=== PATIENT | female | born 1975 | race Caucasian/White ===

== ENCOUNTER 2017-11-14 04:23 | Inpatient (IN) | payer SELFPAY ==
[2017-11-14] VITALS (137 sets, daily range): BP systolic 110–162; BP diastolic 59–97; PULSE 63–109; RESP 16–18; TEMP 97.8–99.1; O2SAT 95–99
[~2017-11-14] VITALS: Ht 162.6 cm; Wt 95.0 kg
[2017-11-14] MEDS ORDERED: LACTATED RINGER'S 1000 ML INJ 1,000 ML IV PRN (05:06)
[2017-11-14] MEDS ORDERED: LACTATED RINGER'S 1000 ML INJ 1,000 ML IV SCH ×3 (05:06→22:39)
[2017-11-14] MEDS ORDERED: PREN29TA PO (05:12)
[2017-11-14] MEDS ORDERED: OXYTOCIN 30 UNITS-500ML PREMIX 500 ML IV ONE ×2 (05:15→17:45)
[2017-11-14] MEDS ORDERED: LIDOCAINE HCL 1% 50 ML VIAL I-DERMAL PRN (05:15)
[2017-11-14] MEDS ORDERED: SODIUM CHLORID 0.9% 500 ML INJ 500 ML IV PRN (05:15)
[2017-11-14] MEDS ORDERED: MINERAL OIL 10 ML VIAL TOPICAL PRN (05:15)
[2017-11-14] MEDS ORDERED: ONDANSETRON HCL 4 MG/2 ML VIAL IV PUSH PRN ×2 (05:15→17:45)
[2017-11-14] MEDS ORDERED: LIDOCAINE HCL 1% 50 ML VIAL INFIL PRN (05:15)
--- NOTE | 2017-11-14 05:22 | HHI.PR ---
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 She has PNC with [facility]. She presents with c/o ctx since 1am. ?LOF. +Bloody show. +FM. is c/b AMA and "HTN" earlier in (not tx). GBS unknown. Weeks Gestation: 38 Para: 0 : 1 History (Limited) History Past Medical History Medical History: Denies Significant Hx Obstetric History Obstetric History 1. current Past Surgical History Narrative Surgical wisdom teeth extraction Family History Family History: Negative Social History Alcohol Use: No Tobacco Use: No Substance Abuse: No Allergies-Medications Allergies-Medications (Allergen,Severity, Reaction): Coded Allergies: No Known Allergies (Verified Allergy, Unknown, 11/14/17) Home Meds Reported Medications Vit-Iron Carbonyl ( Plus Iron 29-1 mg) 29 Mg Iron-1 Mg Tab, 1 TAB PO DAILY for Nutritional Supplement, #30 TAB 0 Refills 11/14/17 ROS Review of Systems Except as stated in HPI: all other systems reviewed are Neg Physical Exam Physical Exam Narrative General: well developed, well nourished, uncomfortable with ctx, obese HEENT: normocephalic atraumatic, extraocular movements intact, neck supple Abdomen: soft, gravid, nontender, nondistended Uterus: fundus term Extremities: full range of motion Skin: normal coloration, no rashes, no suspicious skin lesions noted Neurologic: cranial nerves 2-12 grossly intact, normal muscle tone, normal gait Psychiatric: normal mood and affect, appropriate FHTs: 150s, +accels, occasional early decels, moderate variability, reactive [place]: irregular ctx Cvx: /-1 Data Data Data Vital Signs Reviewed: Yes Orders Orders Vital Signs (Adult) .ON ADMISSION (11/14/17 05:06) ^ Labor Status (11/14/17 05:06) ^ Non Stress Test (11/14/17 05:06) Admit To Inpatient (11/14/17 ) Vital Signs (Adult) .Per protocol (11/14/17 05:06) Heart (11/14/17 05:06) Amnioinfusion (11/14/17 05:06) Urinary Catheter Management .ONCE (11/14/17 05:06) Diet Liquid (11/14/17 Breakfast) Lactated Ringer's 1000 Ml Inj (Lr 1000 M (11/14/17 05:06) Lactated Ringer's 1000 Ml Inj (Lr 1000 M (11/14/17 05:06) Sodium Chlorid 0.9% 500 Ml Inj (Ns 500 M (11/14/17 05:15) Sodium Chlor 0.9% 1000 Ml Inj (Ns 1000 M (11/14/17 05:26) Lidocaine 1% Inj (50 Ml) (Xylocaine 1% I (11/14/17 05:15) Ondansetron Inj (Zofran Inj) (11/14/17 05:15) Fentanyl Inj (Fentanyl Inj) (11/14/17 05:15) Fentanyl Inj (Fentanyl Inj) (11/14/17 05:15) Complete Blood Count With Diff (11/14/17 05:06) Hold Clot (11/14/17 05:06) Abo/Rh Blood Type (11/14/17 05:06) Urinalysis - C+S If Indicated (11/14/17 05:06) Drug Screen, Random Urine (11/14/17 05:06) No Care Spec Serology (11/14/17 05:06) Resp Oxygen Non Rebreathe Mask (11/14/17 ) ^ Epidural / Intrathecal Infus (11/14/17 05:06) Oxytocin 30 Units-500ml Premix (Pitocin (11/14/17 05:15) Lidocaine 1% Inj (50 Ml) (Xylocaine 1% I (11/14/17 05:15) Light Mineral Oil (Muri-Lube Oil) (11/14/17 05:15) Inpatient Certification (11/14/17 ) Ob (2e) Additional Admit Info (11/14/17 05:12) MDM MDM Plan 42y/o G1 @ 38.5wks with labor and elevated BP. -- admit to L&D -- clears, epidural/juarez PRN -- GBS unknown, no risk factors to necessitate tx -- BPs likely 2' to pain; monitor closely -- cat 2 tracing Diagnosis Diagnosis: Primary Impression: 38 weeks gestation of Additional Impressions: Uterine contractions during AMA (advanced maternal age) primigravida 35+ Obesity affecting in third trimester Elevated blood pressure reading Alejo Garber MD Nov 14, 2017 05:22 Alejo Garber MD Nov 14, 2017 05:22
[2017-11-14] MEDS ORDERED: SODIUM CHLOR 0.9% 1000 ML INJ 1,000 ML IV PRN (05:26)
[2017-11-14 05:42] LABS: AUTOMATED NEUTROPHIL # 16.7 TH/MM3 (1.8-7.7); BASOPHIL # 0.1 TH/MM3 (0-0.2); BASOPHIL % 0.4 % (0.0-2.0); EOSINOPHIL % 0.1 % (0.0-4.0); HEMATOCRIT 39.4 % (35.0-46.0); HEMO FLAGS DIFF FINAL; LYMPHOCYTE # 0.9 TH/MM3 (1.0-4.8); MEAN CELL VOLUME 91.2 FL (80.0-100.0); MEAN CORPUSCULAR HEMOGLOBIN 30.4 PG (27.0-34.0); MEAN CORPUSCULAR HGB CONC 33.3 % (32.0-36.0); MONO % 3.3 % (0.0-8.0); NEUT % 91.2 % (16.0-70.0); PLATELET COUNT 284 TH/MM3 (150-450); RED BLOOD COUNT 4.31 MIL/MM3 (4.00-5.30); RED CELL DISTRIBUTION WIDTH 14.3 % (11.6-17.2); WHITE BLOOD COUNT 18.3 TH/MM3 (4.0-11.0)
[2017-11-14] MEDS ORDERED: fentaNYL 2MCG-BUPIV 0.125% INJ 100 ML ONE ×2 (06:02→12:03)
--- NOTE | 2017-11-14 11:19 | HHI.PR ---
Subjective Remarks Upon assuming care for the patient I spoke with her through the cooperage shop supervisor. We discussed the risks of labor and vaginal delivery including but not limited to shoulder dystocia with neurologic injury. We also discussed the risk of delivery and indications for such. Risks were discussed the cooperage shop supervisor including but not limited to pain, infection, bleeding, injury to other organs like the bladder, bowels, nerves, vessels or baby, repeat operation , need for hysterectomy, need for blood transfusion, wound infection or breakdown and other possible complications. The patient is in agreement with a delivery if indicated. Of note the patient was examined at 6:15 AM and was 6 cm dilated. She was reexamined approximately 10:15 AM and was still 6 cm dilated. I examined her and has been no cervical change so we will start oxytocin care the patient is in agreement. Objective Vital Signs Date Time Temp Pulse Resp B/P (MAP) Pulse Ox O2 Delivery O2 Flow Rate FiO2 11/14/17 10:50 99 11/14/17 10:45 90 11/14/17 10:45 88 123/63 (83) 11/14/17 10:40 80 11/14/17 10:35 77 11/14/17 10:30 81 11/14/17 10:30 99.1 16 11/14/17 10:30 100 125/71 (89) 11/14/17 10:25 89 11/14/17 10:20 82 11/14/17 10:15 82 11/14/17 10:15 80 122/66 (84) 11/14/17 10:10 87 11/14/17 10:05 63 117/67 (84) 11/14/17 10:05 76 11/14/17 10:00 87 11/14/17 10:00 84 132/74 (93) 11/14/17 10:00 16 11/14/17 09:55 87 11/14/17 09:50 97 11/14/17 09:45 87 11/14/17 09:45 80 126/66 (86) 11/14/17 09:40 85 11/14/17 09:35 96 11/14/17 09:30 86 11/14/17 09:30 87 125/69 (87) 11/14/17 09:30 98.9 16 11/14/17 09:25 91 11/14/17 09:20 84 11/14/17 09:15 85 128/81 (97) 11/14/17 09:15 88 11/14/17 09:10 85 11/14/17 09:05 92 11/14/17 09:00 16 11/14/17 09:00 90 126/71 (89) 11/14/17 09:00 92 11/14/17 08:55 92 11/14/17 08:50 95 11/14/17 08:45 85 11/14/17 08:45 83 128/75 (92) 11/14/17 08:40 90 11/14/17 08:35 96 11/14/17 08:30 86 11/14/17 08:30 16 11/14/17 08:30 86 124/68 (86) 11/14/17 08:25 95 11/14/17 08:23 97.8 11/14/17 08:20 87 11/14/17 08:15 90 11/14/17 08:15 83 133/73 (93) 11/14/17 08:10 90 11/14/17 08:05 88 11/14/17 08:00 93 11/14/17 08:00 93 137/85 (102) 11/14/17 08:00 16 11/14/17 07:55 86 11/14/17 07:50 91 11/14/17 07:45 87 135/66 (89) 11/14/17 07:45 87 11/14/17 07:45 16 11/14/17 07:40 87 11/14/17 07:30 95 129/70 (89) 11/14/17 07:15 98.5 11/14/17 07:15 83 126/69 (88) 11/14/17 07:15 16 11/14/17 07:00 18 11/14/17 07:00 86 112/92 (99) 11/14/17 06:57 91 129/72 (91) 11/14/17 06:54 104 130/81 (97) 11/14/17 06:52 82 136/59 (84) 11/14/17 06:48 106 131/83 (99) 11/14/17 06:46 97 128/81 (97) 11/14/17 06:42 88 142/73 (96) 11/14/17 06:40 101 11/14/17 06:39 105 150/78 (102) 11/14/17 06:36 109 139/86 (103) 11/14/17 06:33 100 134/71 (92) 11/14/17 06:31 93 119/78 (92) 11/14/17 06:30 18 11/14/17 06:27 95 143/76 (98) 11/14/17 06:24 97 138/80 (99) 11/14/17 06:21 98 151/87 (108) 11/14/17 06:20 96 11/14/17 06:18 90 152/80 (104) 11/14/17 06:15 97 159/97 (117) 11/14/17 06:12 89 162/97 (118) 11/14/17 06:10 100 11/14/17 06:09 100 159/83 (108) 11/14/17 06:07 98 149/81 (103) 11/14/17 06:05 85 11/14/17 06:04 84 138/78 (98) Result Diagram: 11/14/17 0525 Aditi Villalba MD Nov 14, 2017 11:19
[2017-11-14] MEDS ORDERED: OXYTOCIN 30 UNITS-500ML PREMIX 500 ML IV SCH ×2 (11:30→12:00)
[2017-11-14 11:31] LABS: ALKALINE PHOSPHATASE 157 U/L (45-117); TOTAL BILIRUBIN ADULT 0.7 MG/DL (0.2-1.0)
[2017-11-14 14:29] LABS: ALT (GPT) 11 U/L (10-53); ANION GAP 10 MEQ/L (5-15); AST (GOT) 10 U/L (15-37); BICARBONATE 22.2 MEQ/L (21.0-32.0); BLOOD UREA NITROGEN 6 MG/DL (7-18); CHLORIDE 106 MEQ/L (98-107); GLOMERULAR FILTRATION RATE 91 ML/MIN (>89); POTASSIUM 3.9 MEQ/L (3.5-5.1); SODIUM (NA) 138 MEQ/L (136-145)
--- NOTE | 2017-11-14 14:38 | PD.LABORPN ---
Subjective Subjective Patient on 10 units of Pitocin. States that she's feeling increased pain and pressure. Objective Vital Signs Vital Signs Date Time Temp Pulse Resp B/P (MAP) Pulse Ox O2 Delivery O2 Flow Rate FiO2 11/14/17 14:15 93 11/14/17 14:10 96 11/14/17 14:05 93 11/14/17 14:01 92 134/61 (85) 11/14/17 14:00 91 11/14/17 13:55 90 11/14/17 13:50 90 11/14/17 13:46 85 143/65 (91) 11/14/17 13:45 87 11/14/17 13:40 88 11/14/17 13:35 98 11/14/17 13:30 87 11/14/17 13:30 89 128/72 (90) 11/14/17 13:25 88 11/14/17 13:20 92 11/14/17 13:15 87 129/73 (91) 11/14/17 13:15 88 11/14/17 13:10 103 11/14/17 13:05 97 11/14/17 13:00 93 125/67 (86) 11/14/17 13:00 96 11/14/17 12:55 91 11/14/17 12:50 91 11/14/17 12:46 100 110/67 (81) 11/14/17 12:45 93 11/14/17 12:40 101 11/14/17 12:35 88 11/14/17 12:30 91 11/14/17 12:30 98.5 16 11/14/17 12:30 93 117/63 (81) 11/14/17 12:25 92 11/14/17 12:20 89 11/14/17 12:15 94 11/14/17 12:15 88 123/67 (85) 11/14/17 12:10 100 11/14/17 12:05 101 11/14/17 12:00 92 124/72 (89) 11/14/17 12:00 101 11/14/17 11:56 16 11/14/17 11:55 90 11/14/17 11:50 89 11/14/17 11:45 94 127/60 (82) 11/14/17 11:45 94 11/14/17 11:40 94 11/14/17 11:35 89 11/14/17 11:30 100 11/14/17 11:30 88 126/70 (88) 11/14/17 11:25 88 11/14/17 11:20 104 11/14/17 11:15 85 11/14/17 11:05 95 11/14/17 11:00 87 127/74 (91) 11/14/17 11:00 16 11/14/17 11:00 95 11/14/17 10:55 83 11/14/17 10:50 99 11/14/17 10:45 90 11/14/17 10:45 88 123/63 (83) 11/14/17 10:40 80 11/14/17 10:35 77 11/14/17 10:30 81 11/14/17 10:30 99.1 16 11/14/17 10:30 100 125/71 (89) 11/14/17 10:25 89 11/14/17 10:20 82 11/14/17 10:15 82 11/14/17 10:15 80 122/66 (84) 11/14/17 10:10 87 11/14/17 10:05 63 117/67 (84) 11/14/17 10:05 76 11/14/17 10:00 87 11/14/17 10:00 84 132/74 (93) 11/14/17 10:00 16 11/14/17 09:55 87 11/14/17 09:50 97 11/14/17 09:45 87 11/14/17 09:45 80 126/66 (86) 11/14/17 09:40 85 11/14/17 09:35 96 11/14/17 09:30 86 11/14/17 09:30 87 125/69 (87) 11/14/17 09:30 98.9 16 11/14/17 09:25 91 11/14/17 09:20 84 11/14/17 09:15 85 128/81 (97) 11/14/17 09:15 88 11/14/17 09:10 85 11/14/17 09:05 92 11/14/17 09:00 16 11/14/17 09:00 90 126/71 (89) 11/14/17 09:00 92 11/14/17 08:55 92 12/19/17 08:50 95 11/14/17 08:45 85 11/14/17 08:45 83 128/75 (92) 11/14/17 08:40 90 11/14/17 08:35 96 11/14/17 08:30 86 11/14/17 08:30 16 11/14/17 08:30 86 124/68 (86) 11/14/17 08:25 95 11/14/17 08:23 97.8 11/14/17 08:20 87 11/14/17 08:15 90 11/14/17 08:15 83 133/73 (93) 11/14/17 08:10 90 11/14/17 08:05 88 11/14/17 08:00 93 11/14/17 08:00 93 137/85 (102) 11/14/17 08:00 16 11/14/17 07:55 86 11/14/17 07:50 91 11/14/17 07:45 87 135/66 (89) 11/14/17 07:45 87 11/14/17 07:45 16 11/14/17 07:40 87 11/14/17 07:30 95 129/70 (89) 11/14/17 07:15 98.5 11/14/17 07:15 83 126/69 (88) 11/14/17 07:15 16 11/14/17 07:00 18 11/14/17 07:00 86 112/92 (99) 11/14/17 06:57 91 129/72 (91) 11/14/17 06:54 104 130/81 (97) 11/14/17 06:52 82 136/59 (84) 11/14/17 06:48 106 131/83 (99) 11/14/17 06:46 97 128/81 (97) 11/14/17 06:42 88 142/73 (96) 11/14/17 06:40 101 11/14/17 06:39 105 150/78 (102) 11/14/17 06:36 109 139/86 (103) 11/14/17 06:33 100 134/71 (92) Objective Pelvic Exam: Cervix: Midline Dilatation: 6 cm Effacement: 90% Station: -1 Presentation: Vertex Membranes: Ruptured Uterine Contractions: Every 3-4 minutes FHT's: Category: 1 Baseline: 150 Reactive: Yes Variability: Moderate Decels: Early Weeks Gestation: 38 Assessment/Plan Problem List: (1) 38 weeks gestation of ICD Codes: Z3A.38 - 38 weeks gestation of Status: Acute (2) Obesity affecting in third trimester ICD Codes: O99.213 - Obesity complicating , third trimester Status: Acute (3) AMA (advanced maternal age) primigravida 35+ ICD Codes: O09.519 - Supervision of elderly primigravida, unspecified trimester Status: Acute Assessment and Plan Patient is a 42-year-old female at 38 weeks. Category 1 FHT. Little change in cervical exam: /. Plan to increase Pitocin. Recheck in 2 hours or as indicated. Discuss with Annmarie Howell MD R1 Nov 14, 2017 14:38
[2017-11-14 15:32] LABS: BACTERIA, URINE RARE /hpf; BLOOD, URINE MOD (NEG); COMMENT (UR) CULTURE INDICATED; CULTURE IF INDICATED CULTURE INDICATED; GLUCOSE,URINE NEG (NEG); KETONE, URINE 40 mg/dL (NEG); NITRITE,URINE NEG (NEG); PH, URINE 5.5 (5.0-8.5); SQUAMOUS EPITHELIAL CELL URINE <1 /hpf (0-5); URINE COLOR YELLOW (YELLW/STRAW)
--- NOTE | 2017-11-14 15:40 | HHI.PR ---
Subjective Remarks OB Hg attending The patient is a at 38 weeks and 6 days presented with spontaneous active labor. At 4:45 AM she was noted to be 5 cm dilated and at 6:45 AM she was noted to be 6 cm dilated. She is examined at 10:15 AM without any cervical change and I examined her myself approximately 11:15 in the patient was still 6 cm dilated and some caput was appreciated. Oxytocin was started and the patient has been having adequate contractions. She was reexamined and still found to be 6 cm dilated. We will proceed with delivery for arrest of dilation. The patient is in agreement and all of her questions were answered. Objective Vital Signs Date Time Temp Pulse Resp B/P (MAP) Pulse Ox O2 Delivery O2 Flow Rate FiO2 11/14/17 15:25 87 16 11/14/17 15:20 87 11/14/17 15:16 90 136/70 (92) 11/14/17 15:15 89 11/14/17 15:05 93 11/14/17 15:01 88 146/71 (96) 11/14/17 15:00 98.1 16 11/14/17 15:00 96 11/14/17 14:55 98 11/14/17 14:50 91 11/14/17 14:46 89 145/77 (99) 11/14/17 14:45 92 11/14/17 14:40 88 11/14/17 14:35 91 11/14/17 14:31 93 147/79 (101) 11/14/17 14:30 16 11/14/17 14:30 93 11/14/17 14:25 91 11/14/17 14:20 95 11/14/17 14:16 94 136/78 (97) 11/14/17 14:15 93 11/14/17 14:10 96 11/14/17 14:05 93 11/14/17 14:01 92 134/61 (85) 11/14/17 14:00 91 11/14/17 13:55 90 11/14/17 13:50 90 11/14/17 13:46 85 143/65 (91) 11/14/17 13:45 87 11/14/17 13:40 88 11/14/17 13:35 98 11/14/17 13:30 87 11/14/17 13:30 89 128/72 (90) 11/14/17 13:25 88 11/14/17 13:20 92 11/14/17 13:15 87 129/73 (91) 11/14/17 13:15 88 11/14/17 13:10 103 11/14/17 13:05 97 11/14/17 13:00 93 125/67 (86) 11/14/17 13:00 96 11/14/17 12:55 91 11/14/17 12:50 91 11/14/17 12:46 100 110/67 (81) 11/14/17 12:45 93 11/14/17 12:40 101 11/14/17 12:35 88 11/14/17 12:30 91 11/14/17 12:30 98.5 16 11/14/17 12:30 93 117/63 (81) 11/14/17 12:25 92 11/14/17 12:20 89 11/14/17 12:15 94 11/14/17 12:15 88 123/67 (85) 11/14/17 12:10 100 11/14/17 12:05 101 11/14/17 12:00 92 124/72 (89) 11/14/17 12:00 101 11/14/17 11:56 16 11/14/17 11:55 90 11/14/17 11:50 89 11/14/17 11:45 94 127/60 (82) 11/14/17 11:45 94 11/14/17 11:40 94 11/14/17 11:35 89 11/14/17 11:30 100 11/14/17 11:30 88 126/70 (88) 11/14/17 11:25 88 11/14/17 11:20 104 11/14/17 11:15 85 11/14/17 11:05 95 11/14/17 11:00 87 127/74 (91) 11/14/17 11:00 16 11/14/17 11:00 95 11/14/17 10:55 83 11/14/17 10:50 99 11/14/17 10:45 90 11/14/17 10:45 88 123/63 (83) 11/14/17 10:40 80 11/14/17 10:35 77 11/14/17 10:30 81 11/14/17 10:30 99.1 16 11/14/17 10:30 100 125/71 (89) 11/14/17 10:25 89 11/14/17 10:20 82 11/14/17 10:15 82 11/14/17 10:15 80 122/66 (84) 11/14/17 10:10 87 11/14/17 10:05 63 117/67 (84) 11/14/17 10:05 76 11/14/17 10:00 87 11/14/17 10:00 84 132/74 (93) 11/14/17 10:00 16 11/14/17 09:55 87 11/14/17 09:50 97 11/14/17 09:45 87 11/14/17 09:45 80 126/66 (86) 11/14/17 09:40 85 11/14/17 09:35 96 11/14/17 09:30 86 11/14/17 09:30 87 125/69 (87) 11/14/17 09:30 98.9 16 11/14/17 09:25 91 11/14/17 09:20 84 11/14/17 09:15 85 128/81 (97) 11/14/17 09:15 88 11/14/17 09:10 85 11/14/17 09:05 92 11/14/17 09:00 16 11/14/17 09:00 90 126/71 (89) 11/14/17 09:00 92 11/14/17 08:55 92 11/14/17 08:50 95 11/14/17 08:45 85 11/14/17 08:45 83 128/75 (92) 11/14/17 08:40 90 11/14/17 08:35 96 11/14/17 08:30 86 11/14/17 08:30 16 11/14/17 08:30 86 124/68 (86) 11/14/17 08:25 95 11/14/17 08:23 97.8 11/14/17 08:20 87 11/14/17 08:15 90 11/14/17 08:15 83 133/73 (93) 11/14/17 08:10 90 11/14/17 08:05 88 11/14/17 08:00 93 11/14/17 08:00 93 137/85 (102) 11/14/17 08:00 16 11/14/17 07:55 86 11/14/17 07:50 91 11/14/17 07:45 87 135/66 (89) 11/14/17 07:45 87 11/14/17 07:45 16 11/14/17 07:40 87 11/14/17 07:30 95 129/70 (89) 11/14/17 07:15 98.5 11/14/17 07:15 83 126/69 (88) 11/14/17 07:15 16 11/14/17 07:00 18 11/14/17 07:00 86 112/92 (99) 11/14/17 06:57 91 129/72 (91) 11/14/17 06:54 104 130/81 (97) 11/14/17 06:52 82 136/59 (84) 11/14/17 06:48 106 131/83 (99) 11/14/17 06:46 97 128/81 (97) 11/14/17 06:42 88 142/73 (96) 11/14/17 06:40 101 11/14/17 06:39 105 150/78 (102) 11/14/17 06:36 109 139/86 (103) 11/14/17 06:33 100 134/71 (92) 11/14/17 06:31 93 119/78 (92) 11/14/17 06:30 18 11/14/17 06:27 95 143/76 (98) 11/14/17 06:24 97 138/80 (99) 11/14/17 06:21 98 151/87 (108) 11/14/17 06:20 96 11/14/17 06:18 90 152/80 (104) 11/14/17 06:15 97 159/97 (117) 11/14/17 06:12 89 162/97 (118) 11/14/17 06:10 100 11/14/17 06:09 100 159/83 (108) 11/14/17 06:07 98 149/81 (103) 11/14/17 06:05 85 11/14/17 06:04 84 138/78 (98) Result Diagram: 11/14/17 0525 11/14/17 1345 Aditi Villalba MD Nov 14, 2017 15:40
[2017-11-14] MEDS ORDERED: CITRIC ACID-SODIUM CITRATE LIQ 30 ML UDC ONE (15:46)
[2017-11-14] MEDS ORDERED: LACTATED RINGER'S 1000 ML INJ 1,000 ML IV ONE (15:46)
[2017-11-14] MEDS ORDERED: LIDOCAINE 2%/EPINEPHrine PF 1:200,000 20ML SDV ONE (15:47)
[2017-11-14] MEDS ORDERED: ACETAMINOPHEN 1000 MG/100 ML 100 ML IV ONE (16:17)
[2017-11-14] MEDS ORDERED: MORPHINE SULFATE PF 5 MG/10 ML VIAL ONE (16:17)
[2017-11-14] MEDS ORDERED: ceFAZolin 2 GM PREMIX 50 ML IV SCH (17:00)
[2017-11-14] MEDS ORDERED: DOCUSATE SODIUM 50 MG/SENNA 8.6 MG TAB PO PRN (17:45)
[2017-11-14] MEDS ORDERED: oxyCODONE/ACETAMINOPHEN 5 MG/325 MG TAB PO PRN (17:45)
[2017-11-14] MEDS ORDERED: SODIUM CHLORIDE 0.9% FLUSH 10 ML FLUSH IV FLUSH PRN (17:45)
[2017-11-14] MEDS ORDERED: SIMETHICONE 80 MG CHEWABLE TAB PO PRN (17:45)
[2017-11-14] MEDS ORDERED: ZOLPIDEM TARTRATE 5 MG TAB PO PRN (17:45)
[2017-11-14] MEDS ORDERED: ACETAMINOPHEN 325 MG TAB PO PRN (17:45)
--- NOTE | 2017-11-14 17:46 | PD.OB.DELI ---
Procedure Note Section Procedure Pre Op Diagnosis: (1) Arrested labor (2) 38 weeks gestation of (3) AMA (advanced maternal age) primigravida 35+ (4) Obesity affecting in third trimester Post Op Diagnosis: (1) Arrested labor (2) 38 weeks gestation of (3) AMA (advanced maternal age) primigravida 35+ (4) Obesity affecting in third trimester Performed by Dr. Aditi Villalba and Dr. Nichole Cantu Procedure: Primary Low Transverse Sec Indication for delivery: Other (Arrest of dilation) Informed consent obtained: For anesthesia, For procedure Confirmed correct: Patient, Procedure, Site, Time-out taken Anesthesia: Epidural Medication prior to procedure: As documented in eMAR Monitoring during procedure: Blood pressure monitoring, certified neurodiagnostic technologist Urinary catheter: Inserted using sterile technique Sterile preparation: Duraprep Position: Supine with wedge to left side Operative Features Skin Incision: Pfannenstiel Uterine Incision: Low transverse w/knife / blunt ext Membranes Ruptured: Previously (SROM) Presentation: Occiput posterior Delivery date: Nov 14, 2017 Delivery time: 16:42 Delivery of : Uneventful Infant: Female One Minute : 8 Five Minute : 9 Weight: 3610g Status of infant: Viable, Nursery present Placenta delivered: Intact Medications: Antibiotics, Oxytocin Estimated blood loss: 750cc Procedure tolerated: Well Maternal Condition: Stable Condition: Stable Nichole Cantu MD, R3 Nov 14, 2017 17:46
[2017-11-14] MEDS ORDERED: SODIUM CHLORIDE 0.9% FLUSH 10 ML FLUSH IV FLUSH SCH (21:00)
[2017-11-14] MEDS ORDERED: EPIDURAL-DIPHENHYDRAMINE HCL 50 MG/ML VIAL IV PUSH PRN (21:00)
[2017-11-14] MEDS ORDERED: EPIDURAL-DO NOT ADMINISTER ANTICOAGULANTS PRN (21:00)
[2017-11-14] MEDS ORDERED: EPIDURAL-DIPHENHYDRAMINE HCL 50 MG CAP PO PRN (21:00)
[2017-11-14] MEDS ORDERED: EPIDURAL-NO SYSTEMIC NARCOTICS PRN (21:00)
[2017-11-14] MEDS ORDERED: EPIDURAL-NALOXONE HCL 0.4 MG/ML AMP IV PUSH PRN (21:00)
[2017-11-14] MEDS: IBUPROFEN 600 MG TAB PO PRN (21:54)
[2017-11-15] VITALS: BP 127/73; PULSE 64; RESP 18; TEMP 98.3; O2SAT 97
[2017-11-15] MEDS ORDERED: OXYTOCIN 30 UNITS-500ML PREMIX 500 ML IV PRN (03:45)
[2017-11-15 04:00] VITALS: BP 100/60; PULSE 97; RESP 20; TEMP 98.7; O2SAT 95
[2017-11-15] MEDS: IBUPROFEN 600 MG TAB PO PRN ×2 (05:40→16:41)
[2017-11-15 05:45] VITALS: BP 119/68; PULSE 81
[2017-11-15 06:16] LABS: AUTOMATED NEUTROPHIL # 15.5 TH/MM3 (1.8-7.7); BASOPHIL % 0.2 % (0.0-2.0); HEMATOCRIT 30.8 % (35.0-46.0); HEMO FLAGS DIFF FINAL; LYMPH % 7.2 % (9.0-44.0); LYMPHOCYTE # 1.3 TH/MM3 (1.0-4.8); MEAN CELL VOLUME 91.5 FL (80.0-100.0); MEAN CORPUSCULAR HEMOGLOBIN 29.5 PG (27.0-34.0); MEAN CORPUSCULAR HGB CONC 32.3 % (32.0-36.0); MONO % 7.3 % (0.0-8.0); NEUT % 85.3 % (16.0-70.0); PLATELET COUNT 229 TH/MM3 (150-450); RED BLOOD COUNT 3.37 MIL/MM3 (4.00-5.30); RED CELL DISTRIBUTION WIDTH 14.3 % (11.6-17.2); WHITE BLOOD COUNT 18.1 TH/MM3 (4.0-11.0)
[2017-11-15 08:30] VITALS: BP 104/62; PULSE 80; RESP 18; TEMP 98.6
--- NOTE | 2017-11-15 09:10 | HHI.OB ---
Subjective Post Day: 1 Remarks Postoperative day number 1. AFVSS overnight. Pain controlled. Incision not draining. Denies dysuria. She is feeding the baby via breast. Appetite good. No nausea or vomiting. No flatus. No bowel movement. Ambulating well. Denies calf pain, shortness of breath, or cough. Otherwise, she is doing well this morning and has no other complaints. Objective Vitals/I&O Vital Signs Date Time Temp Pulse Resp B/P (MAP) Pulse Ox O2 Delivery O2 Flow Rate FiO2 11/15/17 05:45 81 119/68 (85) 11/15/17 04:00 98.7 97 20 100/60 (73) 95 11/15/17 00:00 98.3 64 18 127/73 (91) 97 11/14/17 21:54 18 11/14/17 20:00 98.2 63 18 147/79 (101) 95 11/14/17 18:47 87 16 99 11/14/17 18:47 138/65 (89) 11/14/17 18:40 80 16 149/70 (96) 99 11/14/17 18:19 91 16 150/86 (107) 99 11/14/17 18:04 81 138/81 (100) 11/14/17 18:04 16 99 11/14/17 17:55 134/87 (103) 11/14/17 17:55 81 16 99 11/14/17 17:50 98.1 11/14/17 17:50 81 16 135/85 (102) 99 11/14/17 15:25 87 16 11/14/17 15:20 87 11/14/17 15:16 90 136/70 (92) 11/14/17 15:15 89 11/14/17 15:05 93 11/14/17 15:01 88 146/71 (96) 11/14/17 15:00 98.1 16 11/14/17 15:00 96 11/14/17 14:55 98 11/14/17 14:50 91 11/14/17 14:46 89 145/77 (99) 11/14/17 14:45 92 11/14/17 14:40 88 11/14/17 14:35 91 11/14/17 14:31 93 147/79 (101) 11/14/17 14:30 16 11/14/17 14:30 93 11/14/17 14:25 91 11/14/17 14:20 95 11/14/17 14:16 94 136/78 (97) 11/14/17 14:15 93 11/14/17 14:10 96 11/14/17 14:05 93 11/14/17 14:01 92 134/61 (85) 11/14/17 14:00 91 11/14/17 13:55 90 11/14/17 13:50 90 11/14/17 13:46 85 143/65 (91) 11/14/17 13:45 87 11/14/17 13:40 88 11/14/17 13:35 98 11/14/17 13:30 87 11/14/17 13:30 89 128/72 (90) 11/14/17 13:25 88 11/14/17 13:20 92 11/14/17 13:15 87 129/73 (91) 11/14/17 13:15 88 11/14/17 13:10 103 11/14/17 13:05 97 11/14/17 13:00 93 125/67 (86) 11/14/17 13:00 96 11/14/17 12:55 91 11/14/17 12:50 91 11/14/17 12:46 100 110/67 (81) 11/14/17 12:45 93 11/14/17 12:40 101 11/14/17 12:35 88 11/14/17 12:30 91 11/14/17 12:30 98.5 16 11/14/17 12:30 93 117/63 (81) 11/14/17 12:25 92 11/14/17 12:20 89 11/14/17 12:15 94 11/14/17 12:15 88 123/67 (85) 11/14/17 12:10 100 11/14/17 12:05 101 11/14/17 12:00 92 124/72 (89) 11/14/17 12:00 101 11/14/17 11:56 16 11/14/17 11:55 90 11/14/17 11:50 89 11/14/17 11:45 94 127/60 (82) 11/14/17 11:45 94 11/14/17 11:40 94 12/19/17 11:35 89 11/14/17 11:30 100 11/14/17 11:30 88 126/70 (88) 11/14/17 11:25 88 11/14/17 11:20 104 11/14/17 11:15 85 11/14/17 11:05 95 11/14/17 11:00 87 127/74 (91) 11/14/17 11:00 16 11/14/17 11:00 95 11/14/17 10:55 83 11/14/17 10:50 99 11/14/17 10:45 90 11/14/17 10:45 88 123/63 (83) 11/14/17 10:40 80 11/14/17 10:35 77 11/14/17 10:30 81 11/14/17 10:30 99.1 16 11/14/17 10:30 100 125/71 (89) 11/14/17 10:25 89 11/14/17 10:20 82 11/14/17 10:15 82 11/14/17 10:15 80 122/66 (84) 11/14/17 10:10 87 11/14/17 10:05 63 117/67 (84) 11/14/17 10:05 76 11/14/17 10:00 87 11/14/17 10:00 84 132/74 (93) 11/14/17 10:00 16 11/14/17 09:55 87 11/14/17 09:50 97 11/14/17 09:45 87 11/14/17 09:45 80 126/66 (86) 11/14/17 09:40 85 11/14/17 09:35 96 11/14/17 09:30 86 11/14/17 09:30 87 125/69 (87) 11/14/17 09:30 98.9 16 11/14/17 09:25 91 11/14/17 09:20 84 11/14/17 09:15 85 128/81 (97) 11/14/17 09:15 88 11/14/17 09:10 85 Objective Remarks GENERAL: Well-nourished, well-developed patient. CARDIOVASCULAR: Regular rate and rhythm without murmurs, gallops, or rubs. RESPIRATORY: Breath sounds equal bilaterally. No accessory muscle use. ABDOMEN/GI: Abdomen soft, non-tender. Fundus: Firm, non-tender at umbilicus. Incision site clean/dry/intact. GENITOURINARY: Light to moderate bleeding. EXTREMITIES: No cyanosis or edema, non-tender, without signs of DVT. Medications and IVs Current Medications Medications (Trade) Dose Ordered Sig/Michelle Route Start Time Stop Time Status Last Admin (Xylocaine 1% Inj (50 ml)) 0.1 ml UNSCH X1 PRN I-DERMAL 11/14/17 05:15 11/17/17 05:14 (Xylocaine 1% Inj (50 ml)) 10 ml UNSCH X1 PRN INFIL 11/14/17 05:15 11/16/17 05:14 (Flu (Quadrivalent) Vaccine Inj) 0.5 ml ONCE ONCE IM 11/15/17 10:00 11/15/17 10:01 Cefazolin Sodium/ Dextrose 50 ml @ 100 mls/hr [employer] IV 11/14/17 17:00 11/18/17 16:59 Lactated Ringer's 1,000 ml @ 100 mls/hr Q10H IV 11/14/17 22:39 11/15/17 18:38 11/14/17 21:54 Oxytocin 500 ml @ 100 mls/hr UNSCH X1 PRN IV 11/15/17 03:45 11/16/17 03:44 (NS Flush) 2 ml BID IV FLUSH 11/14/17 21:00 11/14/17 22:06 (NS Flush) 2 ml UNSCH PRN IV FLUSH 11/14/17 17:45 (Mylicon Chew) 80 mg QID PRN PO 11/14/17 17:45 (Tylenol) 650 mg Q6H PRN PO 11/14/17 17:45 (Motrin) 600 mg Q6H PRN PO 11/14/17 17:45 11/15/17 05:40 (Percocet 5-325 Mg) 1 tab Q4H PRN PO 11/14/17 17:45 (Percocet 5-325 Mg) 2 tab Q4H PRN PO 11/14/17 17:45 (Lashanda-Colace) 2 tab Q12H PRN PO 11/14/17 17:45 (Ambien) 5 mg HS PRN PO 11/14/17 17:45 (M-M-R Ii Inj) 0.5 ml ONCE ONCE SQ 11/15/17 16:00 11/15/17 16:01 (Boostrix Inj) 0.5 ml ONCE ONCE IM 11/15/17 16:00 11/15/17 16:01 (Zofran Inj) 4 mg Q6H PRN IV PUSH 11/14/17 17:45 Miscellaneous Information NO SYSTEMIC NARCOTICS TO BE GIVEN FO... UNSCH PRN .XX 11/14/17 21:00 11/15/17 20:59 (Narcan Inj) 0.4 mg UNSCH PRN IV PUSH 11/14/17 21:00 11/15/17 20:59 (Benadryl Inj) 25 mg Q6H PRN IV PUSH 11/14/17 21:00 11/15/17 20:59 (Benadryl) 50 mg Q6H PRN PO 11/14/17 21:00 11/15/17 20:59 Miscellaneous Information ALL NURSING DEPARTMENTS UNSCH PRN .XX 11/14/17 21:00 11/15/17 20:59 Assessment/Plan Problem List: (1) 38 weeks gestation of ICD Codes: Z3A.38 - 38 weeks gestation of Status: Acute (2) Obesity affecting in third trimester ICD Codes: O99.213 - Obesity complicating , third trimester Status: Acute (3) AMA (advanced maternal age) primigravida 35+ ICD Codes: O09.519 - Supervision of elderly primigravida, unspecified trimester Status: Acute Assessment and Plan 42y/o female who is POD#1 s/p CXN. -Continue routine care. -Percocet and Motrin PRN pain. -Encouraged OOB. Advised pelvic rest for 6 wks. Will need a f/u appt. in 1 wk for incision check. -Re: ctrl, she would like to think about it. -D/c in 1-2 more days. [facility] OB attending Annmarie Cooper MD R1 Nov 15, 2017 09:10
[2017-11-15] MEDS ORDERED: INFLUENZA VIRUS VACCINE (QUADRIVALENT) 0.5 ML SYR IM ONE (10:00)
--- NOTE | 2017-11-15 10:43 | MP ---
cc: ADITI VILLALBA MD DATE OF SURGERY November 14, 2017 PREOPERATIVE DIAGNOSES 1. IUP at 38.6 weeks. 2. Arrest of dilation at 6 cm with adequate trial of labor. 3. Advanced maternal age. 4. GBS unknown. POSTOPERATIVE DIAGNOSES 1. IUP at 38.6 weeks. 2. Arrest of dilation at 6 cm with adequate trial of labor. 3. Advanced maternal age. 4. GBS unknown. PROCEDURE PERFORMED 1. Primary low transverse section with two layer closure via Pfannenstiel skin incision and with retrograde instillation of the bladder. 2. Placement of Alfredo self-retaining wound retractor. ATTENDING SURGEON Aditi Villalba MD PE MANAGER MD Goran Boston. Sean Victor. ANESTHESIA Epidural. SPECIMENS REMOVED Placenta to Pathology. ESTIMATED BLOOD LOSS 750 cc. URINE OUTPUT 300 cc of blood-tinged urine prior to the procedure. DESCRIPTION OF FINDINGS 1. A viable female infant in the cephalic presentation but OP and deflexed with Apgars of 8 and 9, weighting 3610 grams. 2. Grossly normal maternal anatomy with normal fallopian tubes, ovaries and uterus. PROCEDURE DESCRIPTION After obtaining informed consent thorough a anthropology instructor with the risks, benefits and alternatives discussed at length including but not limited to pain, infection, bleeding, injury to other organs like the bladder, bowels, nerves and vessels or baby, need for repeat operation, need for a blood transfusion, hysterectomy, wound breakdown or infection and other possible complications, the patient was taken to the operating room with IV fluids running and Wilhelm catheter in place. Her epidural was re-dosed and confirmed to be adequate. Upon arrival into the operating room, the patient was placed in the dorsal supine position with a leftward tilt and reassuring heart tones confirmed. Adequate anesthesia was confirmed. The patient was prepped and draped in normal sterile fashion and a time-out procedure was performed. A Pfannenstiel skin incision was made with a scalpel and carried down to the level of the fascia with the Bovie. The fascia was nicked in the midline and the fascial incision extended laterally with the curved Mckeon scissors. The Kati clamps were applied to the superior aspect of the fascial incision which was dissected off the underlying rectus muscles bluntly. The Kati clamps were applied to the inferior aspect of the fascial incision which was dissected off in a similar fashion. The rectus muscles were in the midline and the peritoneum entered bluntly. The peritoneal incision was extended bluntly. The Alfredo self-containing wound retractor was placed and the vesicouterine peritoneum identified, grasped with pickups and entered sharply with the Metzenbaum scissors. This incision was extended laterally with the Metzenbaum scissors and the bladder flap created digitally. The bladder blade was inserted and the lower uterine segment incised with the scalpel. The hysterotomy was created bluntly and extended bluntly. The vertex was elevated to the level of the hysterotomy without difficulty and delivered atraumatically, followed by atraumatic delivery of the remainder of the . The nose and mouth were suctioned with the bulb suction and the cord clamped and delayed until 45 seconds. The cord was then doubly clamped and cut and the vigorous infant handed off to the waiting pediatric team. The placenta was delivered manually and the uterus cleared of all clots and debris. The hysterotomy was repaired with a #1 chromic in a running locked fashion. A second layer of the same suture was used in an imbricating fashion. Afterwards excellent hemostasis was noted. The Alfredo wound retractor was removed and the bladder retrograde instilled with 250 cc of sterile mild due to the blood tinged nature of the urine prior to the procedure. The bladder was noted to be without defect. The hysterotomy was once again reinspected and noted to be normal. The female anatomy was noted to be normal with normal fallopian tubes, ovaries and uterus. The peritoneum was reapproximated with 2-0 Vicryl. There was a bleeding vessel at the edge of the rectus muscles which was suture ligated with 2-0 Vicryl. The fascia was reapproximated with #1 Vicryl in a running fashion. The subcutaneous tissue was irrigated with warm normal saline and noted to be hemostatic. The subcutaneous tissue was reapproximated with 2-0 Vicryl in an interrupted fashion. The skin edges were reapproximated in a subcuticular fashion. All sponge, lap and needle counts were correct x 2. I was present for the entire procedure and performed all suarez components of the procedure. MD GUILLERMO Moreira/KENYETTA /10:31 PM 10:16 AM
[2017-11-15 15:00] VITALS: BP 110/68; PULSE 80; RESP 16; TEMP 98.4
[2017-11-15] MEDS ORDERED: MEASLES, MUMPS, RUBELLA VACCINE 0.5 ML VIAL SQ ONE (16:00)
[2017-11-15] MEDS ORDERED: DIPHTH/TETANUS/ACEL PERTUSSIS (BOOSTER) 0.5 ML VIAL/PFS IM ONE (16:00)
[2017-11-15] MEDS: oxyCODONE/ACETAMINOPHEN 5 MG/325 MG TAB PO PRN (16:41)
[2017-11-15 21:40] VITALS: BP 126/74; PULSE 80; RESP 16; TEMP 98
[2017-11-16] MEDS: IBUPROFEN 600 MG TAB PO PRN ×2 (03:05→11:40)
[2017-11-16] MEDS: oxyCODONE/ACETAMINOPHEN 5 MG/325 MG TAB PO PRN (03:05)
[2017-11-16] MEDS ORDERED: IBUP-232 PO (06:59)
[2017-11-16] MEDS ORDERED: PERI PO (06:59)
[2017-11-16] MEDS ORDERED: OXYC1TAB63 PO (06:59)
[2017-11-16 08:05] VITALS: BP 137/85; PULSE 72; RESP 18; TEMP 97.6
--- NOTE | 2017-11-16 08:47 | HHI.OB ---
Subjective Post Day: 1 Remarks Postoperative day number 1. AFVSS overnight. Pain controlled. Incision not draining. Decreased lochia. Denies dysuria. No breast tenderness. She is feeding the baby via breast. Concerned about lack of milk, is supplementing with formula currently. Appetite good. No nausea or vomiting. Positive flatus. No bowel movement. Ambulating well. Denies calf pain, shortness of breath, or cough. Otherwise, she is doing well this morning and has no other complaints. Objective Vitals/I&O Vital Signs Date Time Temp Pulse Resp B/P (MAP) Pulse Ox O2 Delivery O2 Flow Rate FiO2 11/15/17 21:40 98.0 80 16 126/74 (91) 11/15/17 15:00 98.4 11/15/17 15:00 80 16 110/68 (82) Objective Remarks GENERAL: Well-nourished, well-developed patient. CARDIOVASCULAR: Regular rate and rhythm without murmurs, gallops, or rubs. RESPIRATORY: Breath sounds equal bilaterally. No accessory muscle use. ABDOMEN/GI: Abdomen soft, non-tender. Fundus: Firm, non-tender at umbilicus. Incision site clean/dry/intact. GENITOURINARY: Light to moderate bleeding. EXTREMITIES: No cyanosis or edema, non-tender, without signs of DVT. Medications and IVs Current Medications Medications (Trade) Dose Ordered Sig/Michelle Route Start Time Stop Time Status Last Admin (Xylocaine 1% Inj (50 ml)) 0.1 ml UNSCH X1 PRN I-DERMAL 11/14/17 05:15 11/17/17 05:14 Cefazolin Sodium/ Dextrose 50 ml @ 100 mls/hr HUMAN FACTORS ENGINEER IV 11/14/17 17:00 11/18/17 16:59 (NS Flush) 2 ml BID IV FLUSH 11/14/17 21:00 11/14/17 22:06 (NS Flush) 2 ml UNSCH PRN IV FLUSH 11/14/17 17:45 (Mylicon Chew) 80 mg QID PRN PO 11/14/17 17:45 (Tylenol) 650 mg Q6H PRN PO 11/14/17 17:45 (Motrin) 600 mg Q6H PRN PO 11/14/17 17:45 11/16/17 03:05 (Percocet 5-325 Mg) 1 tab Q4H PRN PO 11/14/17 17:45 11/16/17 03:05 (Percocet 5-325 Mg) 2 tab Q4H PRN PO 11/14/17 17:45 (Lashanda-Colace) 2 tab Q12H PRN PO 11/14/17 17:45 11/15/17 16:41 (Ambien) 5 mg HS PRN PO 11/14/17 17:45 (Zofran Inj) 4 mg Q6H PRN IV PUSH 11/14/17 17:45 Assessment/Plan Problem List: (1) 38 weeks gestation of ICD Codes: Z3A.38 - 38 weeks gestation of Status: Acute (2) Obesity affecting in third trimester ICD Codes: O99.213 - Obesity complicating , third trimester Status: Acute (3) AMA (advanced maternal age) primigravida 35+ ICD Codes: O09.519 - Supervision of elderly primigravida, unspecified trimester Status: Acute Assessment and Plan 42y/o female who is POD#1 s/p CXN. -Continue routine care. -Percocet and Motrin PRN pain. -Encouraged OOB. Advised pelvic rest for 6 wks. Will need a f/u appt. in 1 wk for incision check. -Re: ctrl, she would like to think about it. -Concern about lack of milk, is supplementing with bottle feeding and is worried about making baby sick now w/too much feeding. Will child care counselor patient about normal breast-feeding, consulted. -D/c tomorrow wdw OB attending Annmarie Cooper MD R1 Nov 16, 2017 08:47
--- NOTE | 2017-11-16 11:09 | HHI.DCPOC ---
Discharge Care Plan Diagnosis: (1) delivery delivered (2) 38 weeks gestation of (3) Obesity affecting in third trimester (4) AMA (advanced maternal age) primigravida 35+ Report Symptoms to Your Doctor -Temperature above 100.5 degrees -Redness, of incision or excessive or foul smelling drainage -Unusual pain or calf pain -Increased vaginal bleeding -Painful or difficulty urinating -Feelings of extreme sadness or anxiety after 2 weeks Goals to Promote Your Health * To prevent worsening of your condition and complications * To maintain your health at the optimal level AVOID INSERTING ANYTHING INTO THE VAGINA FOR 6 WEEKS Directions to Meet Your Goals Take your medications as prescribed Follow your dietary instruction Follow activity as directed Ensure plenty of rest for recovery Drink fluids for hydration Keep your appointments as scheduled Take your immunizations and boosters as scheduled If your symptoms worsen call your PCP, if no PCP go to Urgent Care Center or Emergency Room Smoking is Dangerous to Your Health. Avoid second hand smoke Call the 24-hour crisis hotline for domestic abuse at Annmarie Cooper MD R1 Nov 16, 2017 11:09
== END 2017-11-16 13:10 | disposition home or self-care (01) | DRG 766 ==
LOC: HOBED 04:40 → H2EA 05:11 → H1EA 19:15
PROVIDERS: ADMIT Obstetrics & Gynecology; ATTEND Obstetrics & Gynecology
PROC: 10D00Z1 Extraction of Products of Conception, Low, Open Approach (ICD-10-PCS; principal; 2017-11-14)
PROC: 3E0R3BZ Introduction of Anesthetic Agent into Spinal Canal, Percutaneous Approach (ICD-10-PCS; 2017-11-14)
PROC: 00HU33Z Insertion of Infusion Device into Spinal Canal, Percutaneous Approach (ICD-10-PCS; 2017-11-14)
DX: O99.214 Obesity complicating childbirth (principal); E66.9 Obesity, unspecified; Z68.35 Body mass index [BMI] 35.0-35.9, adult; O75.89 Other specified complications of labor and delivery; R03.0 Elevated blood-pressure reading, without diagnosis of hypertension; O62.0 Primary inadequate contractions; Z3A.38 38 weeks gestation of pregnancy; Z37.0 Single live birth
CPT/HCPCS: 59025; 80053; 80307; 81001; 82570; 84156; 85025; 86703; 86900; 86901; 87086; 88307; 90686; 90715; J0131; J2274; J2590; J3010; J7120; Q2038